=== PATIENT | male | born 1955 | race Caucasian/White ===

== ENCOUNTER 2017-03-27 21:59 | Observation (INO) | payer MEDICARE ==
[~2017-03-27] VITALS: Ht 193 cm; Wt 145.0 kg
[~2017-03-27 21:59] MED LIST: ALLO300T2 PO; HUMA100I SQ; HUMA100I3 SQ; LASI20TA PO; LEVEMIR SQ; LISI-363 PO; OMEP20TA PO; ULTR50TA PO
[2017-03-27 22:01] VITALS: BP 133/67; PULSE 104; RESP 18; TEMP 98.2; O2SAT 99
--- NOTE | 2017-03-27 22:27 | PD ---
HPI Chief Complaint: Chest Pain Time Seen by Provider: 22:25 Travel History International Travel<30 days: No Contact w/Intl Traveler<30days: No Traveled to known affect area: No History of Present Illness HPI The patient is a 62 year old male who presents to the [facility] emergency department with a history of sinus congestion and cough that began a few days ago. He has been coughing up a white to green sputum. He has had a post nasal drip. He reports that due to the coughing he has had a pulling sensation in his chest and left upper abdomen that began this AM. Then with coughing he had sudden onset of left chest pain and back pain at 9:15 PM today. The pain is constant. It feels like a knife in his chest. It is worse with movement. He is newly on Xarelto 7 weeks ago. He was recently diagnosed with atrial fibrillation. He had a chemical stress test done a month ago and was cleared for knee surgery. He had one episode of loose stool yesterday. He denies any blood in the stool. He reports feeling short of breath as it is worse when taking a deep breath. The patient denies any history of fever, neck pain, vomiting, urinary symptoms, or neurologic symptoms. [facility] Past Medical History Narrative Medical The patient's past medical history is significant for atrial fibrillation, diabetes, hypertension, GERD, and torn ligament in right knee. The patient had a recent chemical stress test that was negative. The patient has never had a cardiac catheterization. PCP: Dr. Davdison. Medical History: Unable to Obtain Heart Rhythm Problems: Yes (afib) Diabetes: Yes Patient Takes Glucophage: No Diminished Hearing: No Genitourinary: Yes Tetanus Vaccination: Unknown Influenza Vaccination: No Past Surgical History Narrative Surgical The patient's past surgical history is significant for eye surgery. Surgical History: Unable to Obtain Eye Surgery: Yes (retina) Social History Alcohol Use: No Tobacco Use: No Substance Use: No Allergies-Medications (Allergen,Severity, Reaction): Coded Allergies: No Known Allergies (Unverified Adverse Reaction, Unknown, 03/27/17) Reported Meds & Prescriptions Reported Meds & Active Scripts Active Ultram (Tramadol HCl) 50 Mg Tab 1-2 Tabs PO Q6 PRN Reported Xarelto (Rivaroxaban) 10 Mg Tab 10 Mg PO DAILY Humalog Kwikpen (Insulin Lispro (Human)) 100 Units/Ml Inj 300 SQ DIRECTED Lasix (Furosemide) 20 Mg Tab 20 Mg PO DAILY 30 Days Allopurinol 300 Mg Tab 300 Mg PO DAILY Omeprazole 20 mg (Omeprazole) 20 Mg Tab 20 Mg PO DAILY Lisinopril 20 mg (Lisinopril) 20 Mg Tab 20 Mg PO DAILY Levemir (Insulin Detemir) 100 Unit/Ml Inj 60 SQ Humalog 3 ml vial (Insulin Human Lispro) 100 Units/Ml Inj 60 Units SQ TID Review of Systems Except as stated in HPI: all other systems reviewed are Neg General / Constitutional: No: Fever Eyes: No: Visual changes HENT: Positive: Rhinorrhea, Congestion, No: Headaches Cardiovascular: Positive: Chest Pain or Discomfort Respiratory: Positive: Cough, Shortness of Breath Gastrointestinal: Positive: Abdominal Pain, No: Nausea, Vomiting Genitourinary: No: Dysuria Musculoskeletal: Positive: Myalgias, No: Pain Skin: No Rash Neurologic: No: Weakness Psychiatric: No: Depression Endocrine: No: Polydipsia Hematologic/Lymphatic: No: Easy Bruising Physical Exam Narrative General: The patient is well-developed well-nourished male, uncomfortable appearing on arrival, however no acute distress. Head and Neck exam: Head is normocephalic atraumatic. Eyes: EOMI, pupils are equal round and reactive to light. Nose: Midline septum with pink mucous membranes Mouth: Dentition unremarkable. Moist mucus membranes. Posterior oropharynx is not erythematous. No tonsillar hypertrophy. Uvula midline. Airway patent. Neck: No palpable lymphadenopathy. No nuchal rigidity. No thyromegaly. Cardiovascular: Irregularly irregular with a rate in the 80s consistent with his history of atrial fibrillation without murmurs, gallops, or rubs. Lungs: Clear to auscultation bilaterally. No wheezes, rhonchi, or rales. The patient has chest wall tenderness on palpation along the left pectoral muscle per Abdomen: Soft, without tenderness to palpation in all 4 quadrants of the abdomen. No guarding, rebound, or rigidity. Normal bowel sounds are audible. No tenderness on palpation of McBurney's point. Extremities: No clubbing or cyanosis. The patient has trace pedal edema bilaterally. He reports that this is chronic and no worse than usual. 2+ pulses in all 4 extremities. No calf tenderness on palpation. Back: No spinous process tenderness to palpation. No costovertebral angle tenderness to palpation. Neurologic Exam: Grossly nonfocal. Skin Exam: No rash noted. Intact skin that is warm and dry. Data Data Last Documented VS Vital Signs Date Time Temp Pulse Resp B/P (MAP) Pulse Ox O2 Delivery O2 Flow Rate FiO2 03/28/17 01:03 80 20 133/62 (85) 99 Room Air 03/27/17 22:55 98.1 Orders Orders Electrocardiogram (03/27/17 22:) B-Type Natriuretic Peptide (03/27/17 22:26) Ckmb (Isoenzyme) Profile (03/27/17 22:26) Complete Blood Count With Diff (03/27/17:) Comprehensive Metabolic Panel (03/27/17:) Magnesium (Mg) (03/27/17 22:26) Prothrombin Time / Inr (Pt) (03/27/17 22:26) Act Partial Throm Time (Ptt) (03/27/17 22:26) Troponin I (03/27/17 22:) Lipase (03/27/17 22:26) Chest, Single Ap (03/27/17 22:26) Ecg Monitoring (03/27/17 22:26) Bilateral Bp Monitoring (03/27/17 22:26) Iv Access Insert/Monitor (03/27/17 22:26) Oximetry (03/27/17 22:26) Oxygen Administration (03/27/17 22:26) Sodium Chloride 0.9% Flush (Ns Flush) (03/27/17 22:30) CKMB (03/27/17 22:35) CKMB% (03/27/17 22:35) Ct Pulmonary Angiogram (03/27/17 23:40) Morphine Inj (Morphine Inj) (03/28/17 00:00) Ondansetron Inj (Zofran Inj) (03/28/17 00:00) Nitroglycerin 2% Oint (Nitroglycerin 2% (03/28/17 00:00) Aspirin Chew (Aspirin Chew) (03/28/17 00:00) Iohexol 350 Inj (Omnipaque 350 Inj) (03/28/17 00:40) Admit Order (Ed Use Only) (03/28/17 01:25) Labs Laboratory Tests Test 03/27/17 22:35 White Blood Count 8.5 TH/MM3 Red Blood Count 4.07 MIL/MM3 Hemoglobin 13.5 GM/DL Hematocrit 39.0 % Mean Corpuscular Volume 95.9 FL Mean Corpuscular Hemoglobin 33.3 PG Mean Corpuscular Hemoglobin Concent 34.7 % Red Cell Distribution Width 13.3 % Platelet Count 112 TH/MM3 Mean Platelet Volume 8.8 FL Neutrophils (%) (Auto) 72.6 % Lymphocytes (%) (Auto) 19.9 % Monocytes (%) (Auto) 5.9 % Eosinophils (%) (Auto) 0.9 % Basophils (%) (Auto) 0.7 % Neutrophils # (Auto) 6.1 TH/MM3 Lymphocytes # (Auto) 1.7 TH/MM3 Monocytes # (Auto) 0.5 TH/MM3 Eosinophils # (Auto) 0.1 TH/MM3 Basophils # (Auto) 0.1 TH/MM3 CBC Comment DIFF FINAL Differential Comment Prothrombin Time 14.4 SEC Prothromb Time International Ratio 1.3 RATIO Activated Partial Thromboplast Time 31.7 SEC Blood Urea Nitrogen 20 MG/DL Creatinine 1.32 MG/DL Random Glucose 99 MG/DL Total Protein 7.1 GM/DL Albumin 3.8 GM/DL Calcium Level 8.5 MG/DL Magnesium Level 1.7 MG/DL Alkaline Phosphatase 78 U/L Aspartate Amino Transf (AST/SGOT) 31 U/L Alanine Aminotransferase (ALT/SGPT) 37 U/L Total Bilirubin 0.6 MG/DL Sodium Level 143 MEQ/L Potassium Level 3.6 MEQ/L Chloride Level 108 MEQ/L Carbon Dioxide Level 24.9 MEQ/L Anion Gap 10 MEQ/L Estimat Glomerular Filtration Rate 55 ML/MIN Total Creatine Kinase 271 U/L Creatine Kinase MB 4.8 NG/ML Troponin I LESS THAN 0.02 NG/ML B-Type Natriuretic Peptide 39 PG/ML Lipase 68 U/L MDM Medical Decision Making Medical Screen Exam Complete: Yes Emergency Medical Condition: Yes Medical Record Reviewed: Yes Differential Diagnosis Acute coronary syndrome, versus pulmonary embolism, versus musculoskeletal strain, versus muscle tear with hematoma, versus pneumothorax Narrative Course During the course of the patients emergency department visit, the patients history, examination, and differential diagnosis were reviewed with the patient. The patient was placed on a monitoring engineer with oximetry and frequent blood pressure monitoring. The patient had - IV access obtained and blood work sent for analysis. The patient had an ECG done on arrival. The patient's ECG shows evidence of atrial fibrillation with rate control, no acute ST segment changes. The patient was initially provided an aspirin 81 mg by mouth 1 as he is on Eliquis. The patient was given nitroglycerin 1/2 inch to the chest wall. The patient was given morphine for pain, Zofran for nausea. The patient's laboratory studies were reviewed and remarkable for a white count of 8.5, hemoglobin 13.5, platelets 112 with 72.6 neutrophils, CMP is remarkable for chloride of 108, BUN 20, creatinine 1.32, CPK 271, troponin I less than 0.02 , BNP 39, lipase 68, PT 14.4, INR 1.3, PTT 31.7 Radiology studies were reviewed and remarkable for a chest x-ray shows no acute cardiopulmonary disease, cardiomegaly is noted. A CTA to rule out PE shows no evidence of pulmonary embolism or other lung abnormality. No other abnormality noted in the soft tissues of the chest. The patient is noted to have coronary artery calcifications. Given the patient's severity of symptoms, the patient will be admitted to the chest pain center for rule out serial cardiac enzyme protocol. The patients results were discussed with the patient, including the plan of care. I explained that further testing and/ or monitoring is indicated based on the patients history, examination, and/ or laboratory findings. Therefore, I recommended admission for additional evaluation. The patient expressed understanding and was agreeable with this plan. The patient was admitted to the hospital in stable condition and sent to a bed under the care of chest pain center. Diagnosis Primary Impression: Chest pain, rule out acute myocardial infarction Admitting Information Admitting Physician Requests: Batsheva Wong MD Mar 27, 2017 22:27
[2017-03-27] MEDS ORDERED: SODIUM CHLORIDE 0.9% FLUSH 10 ML FLUSH IVF PRN (22:30)
[2017-03-27] MEDS ORDERED: XARE10TA PO (22:33)
[2017-03-27 22:48] VITALS: RESP 20; O2SAT 99
[2017-03-27 22:55] VITALS: BP 128/66; PULSE 86; RESP 20; TEMP 98.1; O2SAT 99
[2017-03-27 22:56] VITALS: BP 134/60; PULSE 89; RESP 20; O2SAT 99
[2017-03-27 22:57] LABS: AUTOMATED NEUTROPHIL # 6.1 TH/MM3 (1.8-7.7); BASOPHIL # 0.1 TH/MM3 (0-0.2); BASOPHIL % 0.7 % (0.0-2.0); EOSINOPHIL # 0.1 TH/MM3 (0-0.4); EOSINOPHIL % 0.9 % (0.0-4.0); HEMO FLAGS DIFF FINAL; LYMPH % 19.9 % (9.0-44.0); LYMPHOCYTE # 1.7 TH/MM3 (1.0-4.8); MEAN CELL VOLUME 95.9 FL (80.0-100.0); MEAN CORPUSCULAR HEMOGLOBIN 33.3 PG (27.0-34.0); MEAN CORPUSCULAR HGB CONC 34.7 % (32.0-36.0); MONO % 5.9 % (0.0-8.0); NEUT % 72.6 % (16.0-70.0); PLATELET COUNT 112 TH/MM3 (150-450); RED BLOOD COUNT 4.07 MIL/MM3 (4.50-5.90); RED CELL DISTRIBUTION WIDTH 13.3 % (11.6-17.2); WHITE BLOOD COUNT 8.5 TH/MM3 (4.0-11.0)
[2017-03-27 23:09] LABS: APTT (PATIENT) 31.7 SEC (24.3-30.1); INTERNATIONAL NORMALIZED RATIO 1.3 RATIO; PROTHROMBIN TIME - PATIENT 14.4 SEC (9.8-11.6)
[2017-03-27 23:21] LABS: ANION GAP 10 MEQ/L (5-15); AST (GOT) 31 U/L (15-37); BICARBONATE 24.9 MEQ/L (21.0-32.0); BLOOD UREA NITROGEN 20 MG/DL (7-18); CHLORIDE 108 MEQ/L (98-107); GLOMERULAR FILTRATION RATE 55 ML/MIN (>89); MAGNESIUM 1.7 MG/DL (1.5-2.5); POTASSIUM 3.6 MEQ/L (3.5-5.1); SODIUM (NA) 143 MEQ/L (136-145)
--- NOTE | 2017-03-27 23:21 | RADRPT ---
EXAM DATE/TIME: 03/27/2017 22:44 [facility] COMPARISON: No previous studies available for comparison. INDICATIONS : Chest pain, shortness of breath. MEDICAL HISTORY : Hypertension. Diabetes mellitus type II. SURGICAL HISTORY : None. ENCOUNTER: Initial ACUITY: 1 day PAIN SCORE: 10/10 LOCATION: Left chest FINDINGS: The cardiac silhouette is enlarged in transverse diameter. The lungs are free of acute parenchymal op acity. No effusions are identified. Osseous structures are intact. CONCLUSION: Cardiomegaly. No acute cardiopulmonary disease. 8 Janak Crowder MD on March 27, 2017 at 23:19 Board Certified Radiologist. This report was verified electronically.
[2017-03-27 23:26] LABS: ALKALINE PHOSPHATASE 78 U/L (45-117); ALT (GPT) 37 U/L (12-78); CREATINE KINASE 271 U/L (39-308); TOTAL BILIRUBIN ADULT 0.6 MG/DL (0.2-1.0)
[2017-03-27 23:38] LABS: CKMB 4.8 NG/ML (0.5-3.6)
[2017-03-28] MEDS ORDERED: ONDANSETRON HCL 4 MG/2 ML VIAL IV PUSH ONE
[2017-03-28] MEDS ORDERED: MORPHINE SULFATE 4 MG/ML INJ IV PUSH ONE
[2017-03-28] MEDS ORDERED: NITROGLYCERIN 2% OINT 1 GM PACKET TOPICAL ONE
[2017-03-28] MEDS ORDERED: ASPIRIN 81 MG CHEW TAB CHEW ONE
[2017-03-28] MEDS ORDERED: IOHEXOL 350 MG/ML 10 ML VIAL (for RAD DIAG) IVCONTRAST ONE (00:40)
--- NOTE | 2017-03-28 00:58 | RADRPT ---
EXAM DATE/TIME: 03/28/2017 00:17 [facility] COMPARISON: No previous studies available for comparison. INDICATIONS : Cough, pain in left side of chest. IV CONTRAST: 75 cc Omnipaque 350 (iohexol) IV RADIATION DOSE: 25.62 CTDIvol (mGy) MEDICAL HISTORY : A-Fib. Diabetes. SURGICAL HISTORY : None. ENCOUNTER: Initial ACUITY: 1 day PAIN SCALE: 8/10 LOCATION: Left chest TECHNIQUE: Volumetric scanning of the chest was performed using a pulmonary embolism protocol MIP images were re constructed. Using automated exposure control and adjustment of the mA and/or kV according to patien t size, radiation dose was kept as low as reasonably achievable to obtain optimal diagnostic quality images. DICOM format image data is available electronically for review and comparison. Follow-up recommendations for detected pulmonary nodules are based at a minimum on nodule size and pa tient risk factors according to Fleischner Society Guidelines. FINDINGS: Examination of the pulmonary vasculature demonstrates good filling of the main, lobar and segmental b ranches. There are no filling defects to suggest pulmonary embolism. Multiplanar reconstructions are also unremarkable. Examination of the lung wei demonstrates no evidence of pulmonary nodule. No pleural fluid is iden tified. Examination of the mediastinum demonstrates no abnormally enlarged lymph nodes by CT criteria . No axillary or hilar abnormalities are identified. Coronary artery calcifications are present. The visualized upper abdomen demonstrates no abnormality. CONCLUSION: 1. No evidence of pulmonary embolism. Janak Crowder MD on March 28, 2017 at 0:55 Board Certified Radiologist. This report was verified electronically.
[2017-03-28 01:03] VITALS: BP 133/62; PULSE 80; RESP 20; O2SAT 99
[2017-03-28] MEDS ORDERED: ONDANSETRON HCL 4 MG/2 ML VIAL IV PUSH PRN (02:30)
[2017-03-28] MEDS ORDERED: ACETAMINOPHEN 500 MG CPLT PO PRN (02:30)
[2017-03-28] MEDS ORDERED: SODIUM CHLORIDE 0.9% FLUSH 10 ML FLUSH IV FLUSH PRN (02:30)
[2017-03-28 03:35] LABS: CREATINE KINASE 215 U/L (39-308)
[2017-03-28 03:47] LABS: CKMB 3.6 NG/ML (0.5-3.6)
[2017-03-28] MEDS: ACETAMINOPHEN/HYDROcodone 325 MG/7.5 MG TAB PO PRN ×2 (03:49→08:17)
[2017-03-28 05:34] VITALS: BP 138/62; PULSE 81; RESP 16; O2SAT 98
[2017-03-28 06:37] LABS: CREATINE KINASE 206 U/L (39-308)
[2017-03-28 06:49] LABS: CKMB 3.8 NG/ML (0.5-3.6)
[2017-03-28 07:56] VITALS: O2SAT 98
[2017-03-28] MEDS ORDERED: FURO20TA PO (08:33)
[2017-03-28] MEDS ORDERED: HUMA100I3 SQ (08:33)
[2017-03-28] MEDS ORDERED: OMEP20TA93 PO (08:33)
[2017-03-28] MEDS ORDERED: ALLO300T2 PO (08:33)
[2017-03-28] MEDS ORDERED: LEVEMIR SQ (08:33)
[2017-03-28] MEDS ORDERED: ATOR10TA15 PO (08:33)
[2017-03-28] MEDS ORDERED: LISI-515 PO (08:33)
[2017-03-28] MEDS ORDERED: ATOR20TA15 PO (08:33)
[2017-03-28] MEDS ORDERED: TAMS5CAP PO (08:33)
[2017-03-28] MEDS ORDERED: XARE10TA PO (08:33)
[2017-03-28] MEDS ORDERED: SODIUM CHLORIDE 0.9% FLUSH 10 ML FLUSH IV FLUSH SCH (09:00)
--- NOTE | 2017-03-28 10:02 | HHI.DCPOC ---
Discharge Care Plan Diagnosis: (1) Chest pain, atypical (2) Chronic atrial fibrillation (3) DM (diabetes mellitus) (4) Hypertension (5) Hyperlipidemia Goals to Promote Your Health * To prevent worsening of your condition and complications * To maintain your health at the optimal level Directions to Meet Your Goals Take your medications as prescribed Follow your dietary instruction Follow activity as directed Keep your appointments as scheduled Take your immunizations and boosters as scheduled If your symptoms worsen call your PCP, if no PCP go to Urgent Care Center or Emergency Room Smoking is Dangerous to Your Health. Avoid second hand smoke Call the 24-hour hour crisis hotline for domestic abuse at Elroy Schroeder Mar 28, 2017 10:02
--- NOTE | 2017-03-28 10:13 | HHI.HP ---
HPI Primary Care Physician Unknown Chief Complaint Chest pain History of Present Illness This is a 62-year-old male that presents to ED via private vehicle with a complaint of a left sided chest discomfort. He points to left lateral chest wall states it hurts. First noticed it when he was coughing. States he began coughing 3 nights ago with also sinus drainage. States initially the cough is nonproductive but yesterday was coughing up clear colored mucus as well. No fevers or chills. He states the discomfort has been there since yesterday in the left side constantly however is worsened with movement, pressing on it, or with coughing. States he recently had a cardiac clearance for right knee surgery. States about 1 or 2 months ago he had a normal stress test with Dr. richardson. He was referred to Dr. richardson secondary to his physician finding atrial fibrillation on EKG for preop testing. States Dr. richardson placed him on Xarelto. Has a follow-up appointment with Dr. richardson. Review of Systems General: Patient denies fevers, chills recent, and recent travel HEENT: Patient denies headache, sore throat, difficulty swallowing. Sinus drainage. Cardiovascular: Has the chest discomfort as mentioned above. Denies sensation of heart beating rapidly or irregularly. No syncope. Denies diaphoresis. Respiratory: 3 days of coughing initially nonproductive but now has a clear colored mucus. Denies shortness of breath or inspirational chest discomfort. Denies wheezing or hemoptysis. GI: Patient denies nausea, vomiting, diarrhea, abdominal pain, bloody stools. Musculoskeletal: Patient denies joint pain or edema. Denies calf pain or edema. Right knee pain which is chronic. Neurovascular: Patient denies numbness, tingling, weakness in extremities. Denies headache. Endocrine: Denies polyuria and polydipsia. Hematologic: Denies easy bruising. Skin: Denies rash or itching. Past Family Social History Allergies: Coded Allergies: No Known Allergies (Unverified Adverse Reaction, Unknown, 03/27/17) Past Medical History Chronic atrial fibrillation, hypertension, diabetes, hyperlipidemia, BPH. Denies known CAD. Past Surgical History Eye surgery. Reported Medications Reported Meds & Active Scripts Active Reported Furosemide 20 Mg Tab 20 Mg PO DAILY Allopurinol 300 Mg Tab 300 Mg PO DAILY Lisinopril 20 Mg Tab 20 Mg PO DAILY Humalog Kwikpen Pen Inj (Insulin Lispro (Human) Inj) 300 Unit/3 Ml Pen 1 Units SQ Xarelto (Rivaroxaban) 10 Mg Tab 10 Mg PO DAILY Omeprazole 20 Mg Tab 20 Mg PO DAILY Flomax (Tamsulosin HCl) 0.4 Mg Cap 0.4 Mg PO HS Levemir Inj (Insulin Detemir) 1,000 unit/ 10 ML Vial 60 Units SQ BID Do not mix with any other Insulin. Atorvastatin (Atorvastatin Calcium) 20 Mg Tab 20 Mg PO DAILY Atorvastatin (Atorvastatin Calcium) 10 Mg Tab 10 Mg PO HS Active Ordered Medications Current Medications Medications (Trade) Dose Ordered Sig/Zoey Route Start Time Stop Time Status Last Admin (NS Flush) 2 ml UNSCH PRN IVF 03/27/17 22:30 (NS Flush) 2 ml UNSCH PRN IV FLUSH 03/28/17 02:30 (NS Flush) 2 ml BID IV FLUSH 03/28/17 09:00 (Tylenol) 500 mg Q4H PRN PO 03/28/17 02:30 ([place] 7.5-325 Mg) 1 tab Q4H PRN PO 03/28/17 02:30 03/28/17 08:17 (Zofran Inj) 4 mg Q6H PRN IV PUSH 03/28/17 02:30 (Toradol Inj) 15 mg ONCE ONCE IVP 03/28/17 10:00 03/28/17 10:01 UNV (Lipitor) 10 mg HS PO 03/28/17 21:00 UNV (Lipitor) 20 mg DAILY PO 03/29/17 09:00 UNV (Lasix) 20 mg DAILY PO 03/29/17 09:00 UNV (Prinivil) 20 mg DAILY PO 03/28/17 10:00 UNV (Xarelto) 10 mg DAILY PO 03/28/17 10:00 UNV (Flomax) 0.4 mg HS PO 03/28/17 21:00 UNV Non-Formulary Medication 20 mg DAILY PO 03/28/17 10:00 UNV Family History There is family history of CAD. Social History Nonsmoker. Denies illicit drugs. Denies alcohol abuse. Physical Exam Vital Signs Vital Signs Date Time Temp Pulse Resp B/P (MAP) Pulse Ox O2 Delivery O2 Flow Rate FiO2 03/28/17 07:56 98 21 03/28/17 05:34 81 16 138/62 (87) 98 Room Air 03/28/17 05:25 20 03/28/17 01:03 80 20 133/62 (85) 99 Room Air 03/28/17 00:46 18 03/27/17 22:56 89 20 134/60 (84) 99 Room Air 03/27/17 22:55 98.1 86 20 128/66 (86) 99 Room Air 03/27/17 22:48 99 Room Air 03/27/17 22:48 20 99 Room Air 03/27/17 22:01 98.2 104 18 133/67 (89) 99 Physical Exam GENERAL: This is a well-nourished, well-developed patient, in no apparent distress. Patient speaks in clear complete sentences. Patient is pleasant. HEENT: Head is atraumatic and normocephalic. Neck is supple without lymphadenopathy and trachea is midline. No JVD or carotid bruits. CARDIOVASCULAR: Regular rate and rhythm without murmurs, gallops, or rubs. RESPIRATORY: Clear to auscultation. Breath sounds equal bilaterally. No wheezes , rales, or rhonchi. Left lateral chest wall is tender worsening the symptoms he has been having. No use of accessory muscles. GASTROINTESTINAL: Abdomen is nontender, nondistended. Abdomen soft. No obvious pulsatile mass or bruit. No CVA tenderness. Strong femoral pulses bilaterally. Normal bowel sounds in all quadrants. MUSCULOSKELETAL: Patient is moving upper and lower extremities freely. Pain with movement of his right knee. No calf tenderness or edema, no Homans sign. Strong pulses in upper and lower extremities. NEUROLOGICAL: Patient is alert and oriented. Cranial nerves 2-12 are grossly intact. No focal deficits and speech is clear. SKIN: No rash and turgor is normal. Laboratory Laboratory Tests Test 03/27/17 22:35 03/28/17 02:45 03/28/17 05:30 White Blood Count 8.5 Red Blood Count 4.07 Hemoglobin 13.5 Hematocrit 39.0 Mean Corpuscular Volume 95.9 Mean Corpuscular Hemoglobin 33.3 Mean Corpuscular Hemoglobin Concent 34.7 Red Cell Distribution Width 13.3 Platelet Count 112 Mean Platelet Volume 8.8 Neutrophils (%) (Auto) 72.6 Lymphocytes (%) (Auto) 19.9 Monocytes (%) (Auto) 5.9 Eosinophils (%) (Auto) 0.9 Basophils (%) (Auto) 0.7 Neutrophils # (Auto) 6.1 Lymphocytes # (Auto) 1.7 Monocytes # (Auto) 0.5 Eosinophils # (Auto) 0.1 Basophils # (Auto) 0.1 CBC Comment DIFF FINAL Differential Comment Prothrombin Time 14.4 Prothromb Time International Ratio 1.3 Activated Partial Thromboplast Time 31.7 Blood Urea Nitrogen 20 Creatinine 1.32 Random Glucose 99 Total Protein 7.1 Albumin 3.8 Calcium Level 8.5 Magnesium Level 1.7 Alkaline Phosphatase 78 Aspartate Amino Transf (AST/SGOT) 31 Alanine Aminotransferase (ALT/SGPT) 37 Total Bilirubin 0.6 Sodium Level 143 Potassium Level 3.6 Chloride Level 108 Carbon Dioxide Level 24.9 Anion Gap 10 Estimat Glomerular Filtration Rate 55 Total Creatine Kinase 271 215 206 Creatine Kinase MB 4.8 3.6 3.8 Troponin I LESS THAN 0.02 LESS THAN 0.02 LESS THAN 0.02 B-Type Natriuretic Peptide 39 Lipase 68 Result Diagram: 03/27/17223403/27/172234 Imaging Last [address] Angiography 03/27/172339 Signed Impressions: Service Date/Time: Tuesday, March 28, 2017 00:17 - CONCLUSION: 1. No evidence of pulmonary embolism. Janak Crowder MD Chest X-Ray 03/27/172225 Signed Impressions: Service Date/Time: Monday, March 27, 2017 22:44 - CONCLUSION: Cardiomegaly. No acute cardiopulmonary disease. 8 Janak Crowder MD Course EKGs are atrial fibrillation rate controlled. No significant ST segment depressions or elevations. Caprini VTE Risk Assessment Caprini VTE Risk Assessment: No/Low Risk (score <= 1) Caprini Risk Assessment Model Point Value = 1 Point Value = 2 Point Value = 3 Point Value = 5 Age 41-60 Minor surgery BMI > 25 kg/m2 Swollen legs Varicose veins or History of unexplained or recurrent spontaneous Oral contraceptives or hormone replacement Sepsis (< 1 month) Serious lung disease, including pneumonia (< 1 month) Abnormal pulmonary function Acute myocardial infarction Congestive heart failure (< 1 month) History of inflammatory bowel disease Medical patient at bed rest Age 61-74 Arthroscopic surgery Major open surgery (> 45 min) Laparoscopic surgery (> 45 min) Malignancy Confined to bed (> 72 hours) Immobilizing plaster cast Central venous access Age >= 75 History of VTE Family history of VTE Factor V Leiden Prothrombin [id number] Lupus anticoagulant Anticardiolipin antibodies Elevated serum homocysteine Heparin-induced thrombocytopenia Other congenital or acquired thrombophilia Stroke (< 1 month) Elective arthroplasty Hip, pelvis, or leg fracture Acute spinal cord injury (< 1 month) Prophylaxis Regimen Total Risk Factor Score Risk Level Prophylaxis Regimen 0-1 Low Early ambulation 2 Moderate Order ONE of the following: *Sequential Compression Device (SCD) *Heparin 5000 units SQ BID 3-4 Higher Order ONE of the following medications: *Heparin 5000 units SQ TID *Enoxaparin/Lovenox 40 mg SQ daily (WT < 150 kg, CrCl > 30 mL/min) *Enoxaparin/Lovenox 30 mg SQ daily (WT < 150 kg, CrCl > 10-29 mL/min) *Enoxaparin/Lovenox 30 mg SQ BID (WT < 150 kg, CrCl > 30 mL/min) AND/OR *Sequential Compression Device (SCD) 5 or more Highest Order ONE of the following medications: *Heparin 5000 units SQ TID (Preferred with Epidurals) *Enoxaparin/Lovenox 40 mg SQ daily (WT < 150 kg, CrCl > 30 mL/min) *Enoxaparin/Lovenox 30 mg SQ daily (WT < 150 kg, CrCl > 10-29 mL/min) *Enoxaparin/Lovenox 30 mg SQ BID (WT < 150 kg, CrCl > 30 mL/min) AND *Sequential Compression Device (SCD) Assessment and Plan Assessment and Plan * Atypical chest pain: Patient had serial cardiac enzymes and EKGs for ruling out purposes. He was seen by Dr. Janak Andersen of cardiology and the chest pain center. His discomfort appears to be atypical, likely musculoskeletal from coughing. With history of recent stress testing reported as being normal. I discussed this patient with Dr. richardson who confirmed patient had a normal stress test within the last 2 months. 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 * A. fib: Continue medications. Continue follow-up with Dr. richardson. * Hypertension: Continue current medication. * Diabetes: Follow diabetic diet and resume medication at discharge. Patient is stable at this time. He is agreeable to this plan. Elroy Schroeder Mar 28, 2017 10:13
[2017-03-28] MEDS ORDERED: KETOROLAC TROMETHAMINE 30 MG/ML (IVP) VIAL IVP ONE (10:15)
[2017-03-28] MEDS ORDERED: LISINOPRIL 20 MG TAB PO SCH (11:00)
[2017-03-28] MEDS ORDERED: RIVAROXABAN 10 MG TAB PO SCH (11:00)
[2017-03-28] MEDS ORDERED: PANTOPRAZOLE SOD 20 MG DELAYED RELEASE TAB PO SCH (11:00)
--- NOTE | 2017-03-28 12:34 | EKG ---
Date Performed: 03/28/2017 Time Performed: 05:32:39 PTAGE: 62 years EKG: ATRIAL FIBRILLATION LOW QRS VOLTAGE IN EXTREMITY LEADS NONSPECIFIC T-WAVE ABNORMALITY ABNOR MAL ECG PREVIOUS TRACING : 03/28/2017 02.54 Since previous tracing, no significant change noted DOCTOR: Janak Andersen Interpretating Date/Time 03/28/2017 12:33:12
--- NOTE | 2017-03-28 12:36 | EKG ---
Date Performed: 03/28/2017 Time Performed: 02:54:07 PTAGE: 62 years EKG: ATRIAL FIBRILLATION LOW QRS VOLTAGE IN EXTREMITY LEADS POSSIBLE ANTERIOR MYOCARDIAL INFARCT ION ABNORMAL RHYTHM ECG NO PREVIOUS TRACING DOCTOR: Janak Andersen Interpretating Date/Time 03/28/2017 12:34:11
--- NOTE | 2017-03-28 12:38 | EKG ---
Date Performed: 03/27/2017 Time Performed: 22:23:25 PTAGE: 62 years EKG: ATRIAL FIBRILLATION RIGHT VENTRICULAR HYPERTROPHY ABNORMAL ECG NO PREVIOUS TRACING DOCTOR: Janak Adnersen Interpretating Date/Time 03/28/2017 12:37:31
[2017-03-28] MEDS ORDERED: ATORVASTATIN 10 MG TAB PO SCH (21:00)
[2017-03-28] MEDS ORDERED: TAMSULOSIN HCL 0.4 MG CAP PO SCH (21:00)
[2017-03-29] MEDS ORDERED: ATORVASTATIN 20 MG TAB PO SCH (09:00)
[2017-03-29] MEDS ORDERED: FUROSEMIDE 20 MG TAB PO SCH (09:00)
== END 2017-03-28 11:21 | disposition home or self-care (01) ==
LOC: NEPE 21:59 → NEDA 03-28 01:26 → NEDH 03-28 05:29 → NEPFCDU 03-28 10:12
PROVIDERS: ADMIT Internal Medicine Interventional Cardiology; ATTEND Internal Medicine Interventional Cardiology
DX: R07.9 Chest pain, unspecified (principal); I11.9 Hypertensive heart disease without heart failure; E11.9 Type 2 diabetes mellitus without complications; R05 Cough; R09.81 Nasal congestion; R09.82 Postnasal drip; I48.2 Chronic atrial fibrillation; Z79.01 Long term (current) use of anticoagulants; K21.9 Gastro-esophageal reflux disease without esophagitis; Z79.899 Other long term (current) drug therapy; Z79.4 Long term (current) use of insulin; I25.10 Atherosclerotic heart disease of native coronary artery without angina pectoris; E78.5 Hyperlipidemia, unspecified; N40.0 Benign prostatic hyperplasia without lower urinary tract symptoms; R94.31 Abnormal electrocardiogram [ECG] [EKG]; R06.02 Shortness of breath
CPT/HCPCS: 71010; 71275; 80053; 82550; 82552; 82948; 83690; 83735; 83880; 84484; 85025; 85610; 85730; 93005; 96374; 96375; 99285; G0378; J1885; J2270; J2405; Q9967

== ENCOUNTER → 2017-04-05 | Day surgery (SDC) | payer MEDICARE ==
[~2017-04-05] MED LIST changes: +ATOR10TA15 PO; +ATOR20TA15 PO; +FURO20TA PO; -HUMA100I SQ; +LACTATED RINGER'S 1000 ML INJ 1,000 ML ONE; -LASI20TA PO; -LISI-363 PO; +LISI-515 PO; +MEPERIDINE HCL 25 MG/ML VIAL ONE; +MIDAZOLAM HCL 2 MG/2 ML VIAL ONE; -OMEP20TA PO; +OMEP20TA93 PO; +ONDANSETRON HCL 4 MG/2 ML VIAL IV PUSH ONE; +PROPOFOL 200 MG/20 ML AMP IV ONE; +TAMS5CAP PO; -ULTR50TA PO; +XARE10TA PO; +ceFAZolin INJ 1,000 MG VIAL ONE
--- NOTE | 2017-04-05 11:51 | TN ---
cc: [facility] DATE OF SURGERY 04/05/2017 PREOPERATIVE DIAGNOSES 1. Right knee medial meniscus tear. 2. Right knee moderate degenerative arthritis. POSTOPERATIVE DIAGNOSES 1. Right knee medial meniscus tear posterior third and lateral meniscus tear posterior horn with extension into the midbody. 2. Right knee chondromalacia medial femoral condyle, grade 2A. 3. Chondromalacia patellofemoral joint grade 2A. 4. Moderate synovitis involving the intercondylar notch in the patellofemoral joint. PROCEDURE PERFORMED 1. Right knee arthroscopy with partial medial and lateral meniscectomies. 2. Right knee limited synovectomy involving the intercondylar notch and the patellofemoral joint space. SURGEON MD Bang ANESTHESIA General via laryngeal mask augmented by local infiltration. BLOOD LOSS Minimal. FLUID REPLACEMENT 700 cc of crystalloid. SPECIMEN No specimens were sent. COUNTS All counts were correct. COMPLICATIONS There were no intraoperative complications. IMPLANTS No implants utilized. INDICATIONS FOR PROCEDURE Mr. Francisco is a 62-year-old gentleman who has been experiencing problems with right knee pain, swelling and mechanical symptoms for many months. He has been trying to tolerate the symptoms to the best of his ability but the symptoms have progressively worsened and he is having significant difficulties with weightbearing for distances, squatting and kneeling and doing higher intact activities. He has had limited improvement with conservative management consisting of oral medications, activity modification and intraarticular injection. As a result of failure of conservative care, he is being taken to the operating room for arthroscopic evaluation of the knee as he had an MRI that showed evidence of a tear of the medial meniscus. He was aware of the risks, benefits, potential complications and limitations of the procedure and full written informed consent was obtained. He was fully cleared medically by his primary care physician as well as his gmat instructor who had just recently been reestablished locally and he had even been cleared again from an additional episode of atypical chest pain a week prior to his procedure. DESCRIPTION OF PROCEDURE After the patient appropriately identified in the holding area, he had correctly marked his right knee and I had initialed it as well. He was given 1 gram of intravenous Ancef as prophylactic antibiotic and he was taken to the operating suite. There he was placed under general laryngeal mask anesthetic by Dr. Monte and a well-padded tourniquet was applied high on his right thigh. His right leg was then prepped with alcohol and Hibiclens and draped in normal standard fashion including the use of an impervious stockinette all the way up to the upper thigh. A brief time-out was held confirming the right leg was the appropriate surgical site. The team was in agreement and the case was now begun. The right leg was exsanguinated with an Quincy wrap and the tourniquet was then elevated to 300 mmHg. Standard anteromedial and anterolateral joint line portals were established under direct vision. I then go ahead and place the scope inside the knee. There was a small yellowish effusion that was evacuated. The inflow was initiated and a survey of the joint was as follows: The suprapatellar pouch had moderate erythematous changes on the synovial tissue consistent with synovitis and there was evidence of some hypertrophic synovial tissue that was apparent in the suprapatellar pouch. I went ahead and debrided this with an oscillating shaver. I only took down any of the tissue that actually impinged within the patellofemoral joint. The chondral surfaces in the patellofemoral joint showed relatively minimal chondromalacia. The medial gutter was now explored. There was no evidence of any loose bodies. There was less significant synovitis seen medially. The medial compartment was now entered. There was a tear seen of the posterior one-third of the medial meniscus. It was seen best with significant valgus stress on the knee. There was an unstable complex tear of the posterior-third of the medial meniscus involving the posterior horn. The oscillating shaver was then placed directly over this site and I was able to debride it easily with the oscillating shaver. The tissue was fairly friable. Once this was completed, the remnant of the meniscus was probed and was stable and would not sublux any longer in the joint. There was a very small amount of chondral tissue that was lost immediately after this was completed. The medial femoral condyle had some mild grade 2A and 2B changes of chondromalacia, but no cavitation or full-thickness loss was appreciated. On the tibial side there was some generalized fraying and some fissuring but no full-thickness loss was appreciated. The intercondylar notch was now explored. There was a fair amount of hypertrophic, inflamed and erythematous synovial tissue over the ACL. I went ahead and began debriding enough of the tissue in order to be able identify the ACL which I did and in the process of doing that actually slightly improved his extension of his knee. The anterior cruciate ligament was identified and tensioned appropriately with anterior drawer. The posterior cruciate still had a fair amount of hypertrophic synovial tissue that was overlying it but it tensioned appropriately with posterior drawer maneuvers. The lateral compartment was now entered. There was a degenerative-appearing tear seen of the posterior horn of the lateral meniscus that did extend into the midbody. The oscillating shaver was used over the site to debride the unstable tissue and this was quite easily debridable as well. It was fairly friable. The rest of the lateral meniscus was probed and was stable and would not sublux into the joint. There was relatively minimal chondromalacia of the fibular femoral surfaces. There was no evidence of any severe hypertrophic synovial changes seen in the lateral compartment. The lateral gutter was also now explored. No evidence of any further pathology was identified. The knee was taken through a range of motion. It was then further suction decompressed. I went ahead and explored all compartments once again and did not find any new additional pathology. The patella tracked relatively midline and did not have excessive tilt. The instruments were then removed one final time. The portals were closed with 3-0 nylon simple sutures and then the skin was injected with 30 cc of 0.25% Marcaine with epinephrine for postoperative pain relief. He was then dressed with Xeroform, 4x4s, ABDs and an Quincy wrap. The tourniquet was let down and he had a brisk return of capillary refill, he reestablished palpable dorsalis pedis and posterior tibial pulses and he was awoken from anesthesia and taken to Recovery in stable condition. Appropriate postoperative orders have been written. José Miguel Cuenca MD * Eletroni José Miguel Cuenca MD SIS/REG /11:22 AM /11:38 AM MTDD
== END | disposition home or self-care (01) ==
LOC: ESDC 08:07
PROVIDERS: ATTEND Orthopaedic Surgery Sports Medicine
DX: S83.231A Complex tear of medial meniscus, current injury, right knee, initial encounter (principal); S83.281A Other tear of lateral meniscus, current injury, right knee, initial encounter; M17.11 Unilateral primary osteoarthritis, right knee; M94.261 Chondromalacia, right knee; M65.9 Synovitis and tenosynovitis, unspecified; E11.9 Type 2 diabetes mellitus without complications; Z79.4 Long term (current) use of insulin
CPT/HCPCS: 01400; 29880; 82948; J0690; J2175; J2250; J2405; J3010; J7120